=== PATIENT | female | born 1965 | race American Indian/Alaskan Native ===

== ENCOUNTER 2017-04-24 10:34 | Day surgery (SDC) | payer MEDICAID ==
[2017-04-18 12:26] VITALS: BMI 37.3
[2017-04-24] MEDS ORDERED: Bupivacaine-Epi 0.25%-1:200,000 PF Inj ONE (14:09)
[2017-04-24] MEDS ORDERED: ceFAZolin IV 2 gm in Dextrose 1 GM/50 ML BAG IVPB ONE (14:09)
[2017-04-24] MEDS ORDERED: Lidocaine 1% Inj (20ml) ONE (14:09)
[2017-04-24] MEDS ORDERED: Lactated Ringer's 1,000 ML IV ONE ×2 (14:52→17:30)
[2017-04-24] MEDS ORDERED: Propofol 10 mg/ml Inj (20 ML) ONE ×2 (14:58→15:10)
[2017-04-24] MEDS ORDERED: Midazolam 2 MG/2 ML VIAL ONE (14:58)
[2017-04-24] MEDS ORDERED: Methylene Blue 10 mg/mL(10ml) IV ONE (15:16)
[2017-04-24] MEDS ORDERED: Sodium Chloride 0.9% 20 ML IV ONE (15:16)
[2017-04-24] MEDS ORDERED: Neostigmine Methylsulfate 3mg/3ml Syringe IV ONE (16:42)
[2017-04-24] MEDS ORDERED: HYDROmorphone 0.5 mg/0.5 ml ISec IVP PRN (16:56)
--- NOTE | 2017-04-24 17:02 | PCM.SURG1 ---
Surgeon's Initial Post Op Note - Surgeon's Notes Surgeon: Dr. Trevino Lease Broker: Dr. Melissa PGY2, Saul Ledesma OMS3 Type of Anesthesia: General Endo Pre-Operative Diagnosis: pilonidal cyst Operative Findings: see dictation Post-Operative Diagnosis: same Operation Performed: excision of pilonidal cyst Specimen/Specimens Removed: pilonidal cyst Estimated Blood Loss: EBL {In ML}: 10 Blood Products Given: N/A Drains Used: No Drains Post-Op Condition: Good Date of Surgery/Procedure: 04/24/17 Time of Surgery/Procedure: 15:00
[2017-04-24 17:22] VITALS: TEMP 97; O2SAT 96
[2017-04-24 17:57] VITALS: RESP 18
[2017-04-24 18:33] VITALS: BP 132/70; PULSE 62
--- NOTE | 2017-04-25 16:04 | OP ---
PROCEDURE DATE: 04/24/2017 PREOPERATIVE DIAGNOSIS: Pilonidal cyst. POSTOPERATIVE DIAGNOSIS: Pilonidal cyst. PROCEDURE: 1. Pilonidal cyst excision. 2. Flap closure of the large wound, complex. SURGEON: Jordan Trevino MD. MARKETING OFFICER: Marlena Melissa, PGY-2 resident. TYPE OF ANESTHESIA: General endotracheal tube anesthesia. ESTIMATED BLOOD LOSS: Around 50 mL. DRAIN: None. PATHOLOGY: Sebaceous cyst with surrounding normal skin was sent for the pathology. COMPLICATIONS: None. INTRAOPERATIVE FINDING: The patient had a large pilonidal cyst of upper gluteal cleft and the sinus tract was identified with methylene blue. DESCRIPTION OF PROCEDURE: On intraoperative steps, this 52-year-old female who was diagnosed with pilonidal cyst and the patient had multiple drainage done at the cyst and the patient was consented for excision of the pilonidal cyst. Brought to the OR, placed supine on the operating table. After induction of the anesthesia, the patient was placed in a prone position and the perineal area was prepped and draped in the usual sterile fashion. The methylene blue was injected into the tract to identify the extension of the tract and an elliptical incision was made surrounding the cyst and the incision was made on the skin, subcutaneous tissue. The dissection was carried down up to the subcutaneous fat and up to the presacral fascia and the dissection was carried down similar way on other side and superior and inferior dissection was done and the whole specimen was removed and it was sent off the table for the pathology. Hemostasis was achieved. Now, the subcutaneous suprafascial flap was created on the both sides and the flap was mobilized medially and it was sutured with 0 Vicryl multiple interrupted sutures and then another layer of the subcutaneous fat with 0 Vicryl, another layer of the subcutaneous with 3-0 Vicryl and the skin with a 4-0 Monocryl and a dry sterile dressing was applied. The patient tolerated the procedure well. Count of the instrument and gauze was correct. There was no apparent complication. The patient was extubated in OR and sent to the postanesthesia care unit in stable condition. Jordan Trevino MD
== END 2017-04-24 18:36 | disposition home or self-care (01) ==
LOC: C.SDS 10:34
PROVIDERS: ATTEND Surgery Surgical Critical Care
DX: L05.91 Pilonidal cyst without abscess (principal)
CPT/HCPCS: 11770; 82948; 88307; J0690; J1100; J2250; J2405; J2704; J2710; J3010; J7120

== ENCOUNTER 2017-09-27 11:54 | Emergency (ER) | payer MEDICAID ==
[2017-09-27 11:59] VITALS: BMI 33.9
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
[2017-09-27] MEDS ORDERED: Oxycodone/Acetaminophen 5/325 mg Tab PO STA (12:40)
--- NOTE | 2017-09-27 13:10 | RAD ---
PROCEDURE: Radiographs of the Right Shoulder HISTORY: pain COMPARISON: Radiograph from 01/27 FINDINGS: BONES: Normal. No fracture. JOINTS: Degenerative changes of the acromioclavicular joint. Progressive arthritic changes in the right shoulder. SOFT TISSUES: Normal. OTHER FINDINGS: Visualized portion of the right lung appears clear. IMPRESSION: No acute fracture or dislocation. Degenerative changes.
[2017-09-27] MEDS ORDERED: Oxycodone/Acetaminophen 5/325 mg Tab ONE (13:23)
[2017-09-27 14:06] VITALS: BP 154/86; PULSE 82; RESP 18; TEMP 97.9
[2017-09-27 14:35] VITALS: O2SAT 98
== END 2017-09-27 14:07 | disposition home or self-care (01) ==
LOC: C.ER 11:54
DX: M25.511 Pain in right shoulder (principal)

== ENCOUNTER 2018-01-21 11:30 | Emergency (ER) | payer MEDICAID ==
[2018-01-21 11:30] VITALS: BMI 33.9
[2018-01-21 11:41] VITALS: BP 144/83; PULSE 109; RESP 20; TEMP 99; O2SAT 99
--- NOTE | 2018-01-21 12:01 | C.PDOC ---
History Of Present Illness 52 y/o female presents to the ER c for evaluation of exacerbation of right shoulder pain which has been present for the past several days. Patient states that she used to see a pain management physician but the physician is now retired. Patient reports that she was previously on Percocet 10 mg but she has stopped taking the medications for the past several months. She notes that her current pain is is similar to her prior history of right shoulder pain. Denies having new trauma. Of note, patient has many prior visits for the same complaint. Time Seen by Provider: 01/21/18 11:46 Chief Complaint (Nursing): Upper Extremity Problem/Injury History Per: Patient History/Exam Limitations: no limitations Onset/Duration Of Symptoms: Days Current Symptoms Are (Timing): Still Present Severity: Moderate Past Medical History Reviewed: Historical Data, Nursing Documentation, Vital Signs Vital Signs: Last Vital Signs Temp 99.0 F 01/21/18 11:39 Pulse 109 H 01/21/18 11:39 Resp 20 01/21/18 11:39 BP 144/83 01/21/18 11:39 Pulse Ox 99 01/21/18 13:13 - Medical History PMH: Asthma, Bronchitis, HTN Denies: Chronic Kidney Disease Other Surgeries: Hx of surgeries Family History: States: No Known Family Hx - Social History Hx Alcohol Use: No Hx Substance Use: No - Immunization History Hx Tetanus Toxoid Vaccination: No Hx Influenza Vaccination: No Hx Pneumococcal Vaccination: No Review Of Systems Except As Marked, All Systems Reviewed And Found Negative. Musculoskeletal: Positive for: Shoulder Pain (right shoulder pain) Neurological: Negative for: Weakness, Numbness Physical Exam - Physical Exam Appears: Non-toxic, No Acute Distress Skin: Normal Color, Warm, Dry, Other (intact) Head: Atraumatic, Normacephalic Eye(s): bilateral: Normal Inspection Extremity: Normal ROM (right shoulder), No Tenderness (right shoulder) Neurological/Psych: Oriented x3, Normal Speech ED Course And Treatment O2 Sat by Pulse Oximetry: 99 (RA) Pulse Ox Interpretation: Normal Progress - Data Reviewed Data Reviewed: Old records Medical Decision Making Medical Decision Making: Patient has been advised about the pain management policy at [facility] ER. Patient has been discharged with pain management referral. Disposition Counseled Patient/Family Regarding: Diagnosis, Need For Followup, Rx Given - Disposition Referrals: [facility] [Outside] YOUR,PMD [Other] Disposition: HOME/ ROUTINE Disposition Time: 11:59 Condition: IMPROVED Additional Instructions: YOU HAVE BEEN ADVISED OF THE ER DEPT PAIN MEDICINE POLICY. FOLLOW UP WITH PAIN MANAGEMENT REFERRAL INFO GIVEN. Instructions: Chronic Pain (DC) Forms: [facility] (Namibian), Work Excuse - Clinical Impression Clinical Impression: Chronic shoulder pain - Scribe Statement The provider has reviewed the documentation as recorded by the Meg Moore Provider Attestation: All medical record entries made by the Meg were at my direction and personally dictated by me. I have reviewed the chart and agree that the record accurately reflects my personal performance of the history, physical exam, medical decision making, and the department course for this patient. I have also personally directed, reviewed, and agree with the discharge instructions and disposition.
[2018-01-21] MEDS ORDERED: Oxycodone/Acetaminophen 5/325 mg Tab PO STA (12:03)
[2018-01-21] MEDS ORDERED: Oxycodone/Acetaminophen 5/325 mg Tab ONE (12:10)
== END 2018-01-21 12:11 | disposition home or self-care (01) ==
LOC: C.ER 11:30
DX: G89.29 Other chronic pain (principal); M25.511 Pain in right shoulder; I10 Essential (primary) hypertension